=== PATIENT | female | born 1985 | race American Indian/Alaskan Native ===

== ENCOUNTER 2019-06-08 09:31 | Inpatient (IN) | payer MEDICAID ==
[2019-06-08] MEDS ORDERED: NALOXONE 0.4 MG/1 ML INJ IV PRN (09:46)
[2019-06-08] MEDS ORDERED: TERBUTALINE 1 MG/1 ML INJ IVP PRN (09:46)
[2019-06-08] MEDS ORDERED: AMPICILLIN/NS 2 GM/100 ML 2 GM/100 ML BAG IV ONE (09:46)
[2019-06-08] MEDS ORDERED: LIDOCAINE (2%) 20 MG/1 ML VIAL 20 ML MDV INFILTRATI NR (09:46)
[2019-06-08] MEDS ORDERED: ePHEDrine SULFATE 50 MG/1 ML INJ IV PRN (09:46)
[2019-06-08] MEDS ORDERED: TERBUTALINE 1 MG/1 ML INJ SUB-Q PRN (09:46)
[2019-06-08] MEDS ORDERED: ONDANSETRON 4 MG/2 ML INJ IV PRN ×2 (09:46→17:40)
[2019-06-08] MEDS ORDERED: LACTATED RINGERS 1,000 ML IV SCH (10:00)
[2019-06-08] MEDS ORDERED: OXYTOCIN DRIP 30 UNITS/500 ML BAG IV SCH (10:00)
[2019-06-08] MEDS ORDERED: OXYTOCIN 20 UNIT/1000ML DRIP 20 UNITS/1,000 ML BAG IV SCH ×2 (10:00→17:40)
[2019-06-08 10:23] LABS: Hematocrit 36.2 % (30.3-42.9); Hemoglobin 12.6 gm/dl (10.1-14.3); Mean Corpuscular HGB Conc 35 % (30-34); Mean Corpuscular Volume 96 fl (79-97); Platelet Count 223 K/mm3 (140-440); Red Blood Count 3.77 M/mm3 (3.65-5.03); Red Cell Distribution Width 13.7 % (13.2-15.2)
[2019-06-08] MEDS ORDERED: BUTORPHANOL 2 MG/1 ML INJ IV PRN (10:30)
[2019-06-08 11:40] LABS: Hepatitis C Virus Antibody Non-Reactive (NonReactive)
[2019-06-08] MEDS: fentaNYL 100 MCG/2 ML INJ IV PRN ×2 (12:12→14:11)
[2019-06-08] MEDS ORDERED: AMPICILLIN/NS 1 GM/50 ML 1 GM/50 ML BAG IV SCH (13:49)
--- NOTE | 2019-06-08 14:30 | History and Physical Report ---
History of Present Illness Date of examination: 06/08/19 Date of admission: 06/08/19 10:16 Chief complaint: contractions History of present illness: Pt is a 33 year old -[place] female 06/13/19 at 39w2d who presents with regular painful contractions and cervical change from 4 to 5 cm while being evaluated. She denies vaginal bleeding but does report bloody show. She has had care with Dr Cardenas which the patient reports is uncomplicated. The records are not available for review. Her GBS status is unknown. Past History Past Medical History: no pertinent history Past Surgical History: no surgical history Social history: no significant social history - Obstetrical History Expected Date of Delivery: 06/13/19 Actual Gestation: 39 Week(s) 2 Day(s) : 10 Para: 5 Hx # Term Pregnancies: 5 Number of Pregnancies: 0 Spontaneous Abortions: 2 Induced : 2 Number of Living Children: 5 Medications and Allergies Allergies Allergy/AdvReac Type Severity Reaction Status Date / Time No Known Allergies Allergy Unverified 06/08/19 09:36 Home Medications Medication Instructions Recorded Confirmed Last Taken Type Calcium Carbonate [Tums 500MG CHEW] 500 mg PO Q4HR 06/08/19 06/08/19 06/07/19 22:00 History Vitamin 1 tab PO DAILY 06/08/19 06/08/19 06/06/19 18:00 History Active Meds: Active Medications Butorphanol Tartrate (Stadol) 2 mg IV Q2H PRN PRN Reason: Pain , Severe (7-10) Last Admin: 06/08/19 10:30 Dose: 2 mg Documented by: Ephedrine Sulfate (Ephedrine Sulfate) 10 mg IV Q2M PRN PRN Reason: Hypotension Fentanyl (Sublimaze) 100 mcg IV Q2H PRN PRN Reason: Labor Pain Last Admin: 06/08/19 14:11 Dose: 50 mcg Documented by: Oxytocin/Sodium Chloride (Pitocin/Ns 20 Unit/1000ml Drip) 20 units in 1,000 mls @ 125 mls/hr IV DIRECT SHADIA Oxytocin/Sodium Chloride (Pitocin/Ns 30 Unit/500ml) 30 units in 500 mls @ 2 mls/hr IV TITR SHADIA; Protocol Lactated Ringer's (Lactated Ringers) 1,000 mls @ 125 mls/hr IV DIRECT SHADIA Last Admin: 06/08/19 10:30 Dose: 125 mls/hr Documented by: Ampicillin Sodium (Ampicillin/Ns 1 Gm/50 Ml) 1 gm in 50 mls @ 100 mls/hr IV Q4HR [facility]; Protocol Last Admin: 06/08/19 13:29 Dose: 100 mls/hr Documented by: Mineral Oil (Mineral Oil) 30 ml PO QHS PRN PRN Reason: Constipation Naloxone HCl (Naloxone) 0.1 mg IV Q2MIN PRN PRN Reason: Res Rate </= 8 or 02 SAT < 92% Ondansetron HCl (Zofran) 4 mg IV Q8H PRN PRN Reason: Nausea And Vomiting Terbutaline Sulfate (Brethine) 0.25 mg SUB-Q ONCE PRN PRN Reason: Hyperstimulation/Hypertonicity Terbutaline Sulfate (Brethine) 0.25 mg IVP ONCE PRN PRN Reason: Hyperstimulation/Hypertonicity Review of Systems All systems: negative - Vital Signs Vital signs: Vital Signs Pulse BP 67 131/79 06/08/19 09:33 06/08/19 09:33 Temp Pulse Resp BP Pulse Ox 98.1 F 60 18 123/75 06/08/19 12:05 06/08/19 12:05 06/08/19 12:05 06/08/19 12:05 - Physical Exam Breasts: Positive: deferred Cardiovascular: Regular rate Lungs: Positive: Clear to auscultation Abdomen: Positive: soft (gravid ) Genitourinary (Female): Positive: normal external genitalia Uterus: Positive: enlarged (gravid ) Extremities: Positive: normal - Obstetrical FHR: auscultation normal Uterine Contraction Monitor Mode: External Cervical Dilatation: 7 Cervical Effacement Percentage: 100 station: -2 Uterine Contraction Pattern: Irregular Uterine Tone Measurement Phase: Resting Uterine Contraction Intensity: Moderate Results Result Diagrams: 06/08/19 10:10 Abnormal lab results 06/08/19 Range/Units 10:10 MCH 34 H (28-32) pg MCHC 35 H (30-34) % All other labs normal. Assessment and Plan A: IUP at 39w2d Active labor GBS unknown P: Admit to labor and delivery GBS prophylaxis AROM- clear fluid Routine intrapartum care panel as records are unavailable
--- NOTE | 2019-06-08 16:25 | Procedure Note ---
OB Delivery Note - Delivery Date of Delivery: 06/08/19 Surgeon: MARCE CELAYA Estimated blood loss: other (400 mL) - Vaginal Delivery presentation: vertex Delivery position: OA Intrapartum events: PROM->1hr before delivery, mult.variable deceleratio Delivery induction: none Delivery augmentation: rupture of membranes Delivery monitor: external FHT, external uterine Route of delivery: Delivery placenta: spontaneous Delivery cord: nuchal cord (Tight nuchal cord, doubly clamped and cut ) Episiotomy: none Delivery laceration: other (vaginal abrasion, hemostatic without repair ) Anesthesia: intravenous - A at 1 minute: 3 at 5 minutes: 7 Gender: Male (3260g (7lb 3 oz) @ 1531 pm)
[2019-06-08] MEDS ORDERED: WITCH HAZEL/ GLYCERIN PAD TP PRN (17:40)
[2019-06-08] MEDS ORDERED: BENZOCAINE/MENTHOL 20/0.5% TOP SPRAY 56 GM TP PRN (17:40)
[2019-06-08] MEDS ORDERED: diphenhydrAMINE 25 MG CAP PO PRN (17:40)
[2019-06-08] MEDS ORDERED: IBUPROFEN 600 MG TAB PO SCH (17:40)
[2019-06-08] MEDS ORDERED: MAGNESIUM HYDROXIDE (MOM) ORAL LIQD UDC PO PRN (17:40)
[2019-06-08] MEDS ORDERED: HYDROcodone/ACETAMINOPHEN 5-325 MG TAB PO PRN (17:40)
[2019-06-08] MEDS ORDERED: ACETAMINOPHEN 325 MG TAB PO PRN (17:40)
[2019-06-08] MEDS ORDERED: PROMETHAZINE 25 MG RECT SUPP PR PRN (17:40)
[2019-06-08] MEDS ORDERED: LANOLIN/ZINC/DIMETHICONE (LANSINOH) 7 GM TP PRN ×2 (17:40)
[2019-06-08] MEDS ORDERED: PROMETHAZINE 25 MG TAB PO PRN (17:40)
[2019-06-08 20:44] LABS: Amphetamine Screen,Urine PRESUMPTIVE NEGATIVE; Benzodiazepines Screen,Urine PRESUMPTIVE NEGATIVE; Cocaine Screen,Urine PRESUMPTIVE NEGATIVE; Methadone Screen,Urine PRESUMPTIVE NEGATIVE; Opiate Screen,Urine PRESUMPTIVE NEGATIVE
[2019-06-08 21:03] LABS: Cannabinoid Screen,Urine PRESUMPTIVE POSITIVE
[2019-06-08] MEDS ORDERED: IBUPROFEN 800 MG TAB PO SCH (22:00)
[2019-06-08] MEDS ORDERED: MINERAL OIL 30 ML ORAL LIQD PO PRN (22:00)
[2019-06-08] MEDS: FERROUS SULFATE 325 MG TAB PO SCH (22:40)
[2019-06-09] MEDS ORDERED: oxyCODONE /ACETAMINOPHEN 5-325MG TAB PO PRN
[2019-06-09] MEDS ORDERED: KETOROLAC 30 MG/1 ML INJ IV ONE ×2 (00:01→02:00)
[2019-06-09 06:44] LABS: Hematocrit 32.1 % (30.3-42.9); Hemoglobin 11.1 gm/dl (10.1-14.3)
[2019-06-09] MEDS: IBUPROFEN 800 MG TAB PO SCH ×3 (06:55→18:43)
[2019-06-09] MEDS: FERROUS SULFATE 325 MG TAB PO SCH (10:55)
--- NOTE | 2019-06-09 14:04 | Progress Note ---
Assessment and Plan A: PPD#1 s/p at term P: Routine care Discharge tomorrow with follow up in four weeks. Subjective - Subjective Date of service: 06/10/19 Principal diagnosis: s/p at term Interval history: No issues overnight. Patient reports: appetite normal, voiding normally, pain well controlled, ambulating normally [place]: doing well Objective - Vital Signs Latest vital signs: Vital Signs Temp Pulse Resp BP BP Pulse Ox 06/09/19 08:01 98.3 F 73 18 117/72 95 06/09/19 04:46 98.0 F 73 20 111/57 94 06/09/19 01:01 98.2 F 78 20 121/80 97 06/08/19 17:25 98.3 F 63 18 114/48 98 06/08/19 16:48 67 121/65 06/08/19 16:33 69 122/70 06/08/19 16:19 63 126/72 06/08/19 16:02 66 125/78 06/08/19 15:57 65 119/73 Intake and Output 06/08/19 06/09/19 06/09/19 22:59 06:59 14:59 Intake Total 120 Output Total 750 400 Balance -750 -400 120 Intake: Oral 120 Output: Urine 750 400 Void 750 400 Other: Total, Intake Amount 120 Total, Output Amount 350 400 # Voids Void 1 3 1 Estimated Blood Loss 400 - Exam Breasts: Present: deferred Cardiovascular: Present: Regular rate Lungs: Present: Clear to auscultation Abdomen: Present: soft Uterus: Present: fundal height at umbilicus Extremities: Present: normal
[2019-06-09] MEDS ORDERED: MEASLES, MUMPS & RUBELLA 12,500 UNIT/0.5 ML VACCINE SUB-Q ONE (16:32)
[2019-06-09] MEDS ORDERED: TETANUS,DIPH,PERTUSS(ACELL) VACCINE 0.5 ML SYRINGE IM ONE (16:32)
--- NOTE | 2019-06-10 04:28 | Discharge Summary ---
Providers - Providers Date of Admission: 06/08/19 10:16 Date of discharge: 06/10/19 Attending physician: MARCE CELAYA Primary care physician: [employer] Hospitalization Reason for admission: active labor Delivery: Procedure details: Please see delivery note. Laceration: other (vaginal abrasion ) Other procedures: none complications: none Discharge diagnosis: IUP at term delivered [place] baby: male Hospital course: Pt was admitted in active labor at term and went on to have a spontaneous vaginal delivery which she tolerated well. Her course was unco mplicated and she met discharge criteria on PPD#2. She will follow up in 4 wks for exam. Condition at discharge: Stable Disposition: - TO HOME OR SELFCARE - Discharge Diagnoses (1) Term of male Status: Acute Plan - Discharge Medications Prescriptions: Ibuprofen [Motrin] 800 mg PO Q8HR PRN #30 tablet PRN Reason: Pain, Moderate (4-6) oxyCODONE /ACETAMINOPHEN [Percocet 5/325] 1 tab PO Q6HR PRN #20 tablet PRN Reason: Pain - Provider Discharge Summary Activity: routine, no sex for 6 weeks, no heavy lifting 4 weeks, no strenuous exercise Diet: routine Instructions: routine Additional instructions: [] Smoking cessation referral if applicable(refer to patient education folder for contact #) [] Refer to [facility] Booklet Call your doctor immediately for: * Fever > 100.5 * Heavy vaginal bleeding ( >1 pad per hour) * Severe persistent headache * Shortness of breath * Reddened, hot, painful area to leg or breast * Drainage or odor from incision. * Keep incision clean and dry at all times and follow doctor's instructions regarding bathing/showering - Follow up plan Follow up: MARCE CELAYA MD [Staff Physician] - 07/06/19 (Please call to schedule exam. Schedule your son's circumcision before he is 4 wks old )
[2019-06-10 18:24] VITALS: BP 138/89
== END 2019-06-10 17:30 | disposition home or self-care (01) | DRG 775 ==
LOC: TRG 09:31 → LD 10:16 → OB 17:39
PROVIDERS: ADMIT Obstetrics & Gynecology; ATTEND Obstetrics & Gynecology
PROC: 10E0XZZ Delivery of Products of Conception, External Approach (ICD-10-PCS; principal; 2019-06-08)
PROC: 10907ZC Drainage of Amniotic Fluid, Therapeutic from Products of Conception, Via Natural or Artificial Opening (ICD-10-PCS; 2019-06-08)
PROC: 3E0234Z Introduction of Serum, Toxoid and Vaccine into Muscle, Percutaneous Approach (ICD-10-PCS; 2019-06-09)
PROC: 3E0134Z Introduction of Serum, Toxoid and Vaccine into Subcutaneous Tissue, Percutaneous Approach (ICD-10-PCS; 2019-06-09)
DX: O76 Abnormality in fetal heart rate and rhythm complicating labor and delivery (principal); O69.1XX0 Labor and delivery complicated by cord around neck, with compression, not applicable or unspecified; O42.92 Full-term premature rupture of membranes, unspecified as to length of time between rupture and onset of labor; Z3A.39 39 weeks gestation of pregnancy; Z37.0 Single live birth; Z23 Encounter for immunization
CPT/HCPCS: 36415; 80307; 85014; 85018; 85027; 86592; 86706; 86762; 86803; 86850; 86900; 86901; 87535; 87806; G0378; J0290; J0595; J1885; J2590; J3010; J7120